=== PATIENT | male | born 1940 | race Caucasian/White ===

== ENCOUNTER 2016-07-29 21:54 | Observation (INO) | payer OTHER ==
--- NOTE | 2016-07-29 22:28 | CPEKG ---
Heart Rate: 91 RR Interval: 659 P-R Interval: 152 QRSD Interval: 96 QT Interval: 364 QTC Interval: 448 P Boston: 21 QRS Boston: -59 T Wave Boston: 40 EKG Severity - ABNORMAL ECG - EKG Impression: SINUS RHYTHM EKG Impression: PAIRED VENTRICULAR PREMATURE COMPLEXES EKG Impression: PROBABLE LEFT ATRIAL ABNORMALITY EKG Impression: LEFT ANTERIOR FASCICULAR BLOCK Electronically Signed By: Mervin Serrano 30-Jul-2016 06:20:26
[2016-07-29 22:35] LABS: % IMMATURE GRANULYOCYTES 0.2 % (0.0-1.1); ABSOLUTE IMMATURE GRANULOCYTES 0.01 10^3/uL (0.00-0.10); ADD DIFF? NO; ADD MORPH? NO; ADD SCAN? NO; ATYPICAL LYMPHOCYTE FLAG 10 (0-99); FRAGMENT RBC FLAG 0 (0-99); HEMATOCRIT 45.1 % (40.0-51.0); HEMOGLOBIN 15.7 g/dL (13.7-17.5); LEFT SHIFT FLG 0 (0-99); LIPEMIA HEMOLYSIS FLAG 90 (0-99); MEAN CELL HEMOGLOBIN 32.3 pg (27.9-34.1); MEAN CELL HEMOGLOBIN CONCENTR. 34.8 g/dL (32.4-36.7); MEAN CELL VOLUME 92.8 fL (81.5-99.8); MEAN PLATELET VOLUME 9.6 fL (8.7-11.7); PLATELET CLUMPS FLAG 0 (0-99); PLATELET COUNT 250 10^3/uL (150-400); RED BLOOD CELL COUNT 4.86 10^6/uL (4.40-6.38)
--- NOTE | 2016-07-29 22:40 | EDPHY ---
H & P Stated Complaint: stroke like symptoms began 1914 tonight Time Seen by Provider: 07/29/16 22:06 HPI/ROS: Chief complaint: Right jaw and arm numbness and weakness HPI: 75-year-old male was driving home from dinner at 7:15 this evening when he had the sensation that his right jaw felt dislocated or out of place. He was able to open and close without any difficulty. Shortly thereafter he became aware that he was having difficulty moving his right arm. States he could not lift it across his body. Patient also had some blurry vision and some numbness in his right leg. This lasted for about an hour when he called his primary care physician, who advised him to observe this for 30 minutes. If things did not improve resolved should present for evaluation. Patient states now he feels normal. Does not have a history of similar episodes in the past. No headache. Vision is now back to normal. No nausea or vomiting. Symptoms were moderate in severity, now completely resolved. ROS: 10 point Review of Systems is negative except as noted in the HPI. Past medical history: PVCs status post angiogram and ablation in March of last year. Renal calculi Ulcer colitis peptic ulcer disease Depression Allergies: Sulfa Physical exam: Gen: Awake, Alert, No Distress HEENT: Nose: no rhinorrhea Eyes: PERRLA, EOMI Mouth: Moist mucosa Neck: Supple, no JVD Chest: nontender, lungs clear to auscultation Heart: S1, S2 normal, no murmur Abd: Soft, non-tender, no guarding Back: no CVA tenderness, no midline tenderness Ext: no edema, non-tender Skin: no rash Neuro: CC the NIH stroke exam - Personal History Current Tetanus/Diphtheria Vaccine: Unsure Current Tetanus Diphtheria and Acellular Pertussis (TDAP): Unsure - Medical/Surgical History Hx Asthma: No Hx Chronic Respiratory Disease: No Hx Diabetes: No Hx Cardiac Disease: No Hx Renal Disease: No Hx Cirrhosis: No Hx Alcoholism: No Hx HIV/AIDS: No Hx Splenectomy or Spleen Trauma: No Other PMH: prolapsed rectum and hemarrhoids and UTI. cardiac ablasion and angiogram 2016 - Social History Smoking Status: Never smoked Constitutional: Initial Vital Signs Temperature (C) 36.8 C 07/29/16 22:08 Heart Rate 94 07/29/16 22:08 Respiratory Rate 16 07/29/16 22:08 Blood Pressure 125/75 H 07/29/16 22:08 O2 Sat (%) 98 07/29/16 22:08 O2 Delivery Mode Room Air Allergies/Adverse Reactions: Sulfa (Sulfonamide Antibiotics) Allergy (Mild, Verified 07/29/16 22:09) Home Medications: Medication Instructions Recorded Rapiflo 03/08/15 ASPIRIN 07/29/16 BIOCEL TABLET 07/29/16 CLONAZEPAM 07/29/16 Cialis 07/29/16 Glucosamine Chondroitin Cap 07/29/16 Latanoprost 0.005% 07/29/16 Levofloxacin 07/29/16 Lutein 07/29/16 Ocuvite Softgel 07/29/16 [place] 3 1,000 mg Softgel 07/29/16 PRILOSEC 07/29/16 Sertraline HCl 07/29/16 Medical Decision Making - Diagnostics EKG Interpretation: EC sinus rhythm with a rate of 91 left anterior fascicular block multifocal PVCs. No acute ST or T-wave changes. Imaging: CT brain: Negative per Dr. Ny ED Course/Re-evaluation: 75-year-old male presenting with TIA type symptoms. Symptoms have resolved here. ECG shows no acute changes. CT brain is normal. Blood work is unremarkable. Patient will require admission for TIA workup. I have discussed with Dr. Philip Joy, hospitalist. He will admit to his service for further evaluation. - Data Points Laboratory Results: Laboratory Results 07/29/16 22:07 07/29/16 22:07 07/29/16 07/29/16 22:07 22:07 WBC 4.79 10^3/uL 10^3/uL (3.80-9.50) RBC 4.86 10^6/uL 10^6/uL (4.40-6.38) Hgb 15.7 g/dL g/dL (13.7-17.5) Hct 45.1 % % (40.0-51.0) MCV 92.8 fL fL (81.5-99.8) MCH 32.3 pg pg (27.9-34.1) MCHC 34.8 g/dL g/dL (32.4-36.7) RDW 13.0 % % (11.5-15.2) Plt Count 250 10^3/uL 10^3/uL (150-400) MPV 9.6 fL fL (8.7-11.7) Neut % (Auto) 61.0 % % (39.3-74.2) Lymph % (Auto) 30.1 % % (15.0-45.0) Antelope % (Auto) 7.9 % % (4.5-13.0) Eos % (Auto) 0.6 % % (0.6-7.6) Baso % (Auto) 0.2 % L % (0.3-1.7) Nucleat RBC Rel Count 0.0 % % (0.0-0.2) Absolute Neuts (auto) 2.92 10^3/uL 10^3/uL (1.70-6.50) Absolute Lymphs (auto) 1.44 10^3/uL 10^3/uL (1.00-3.00) Absolute Monos (auto) 0.38 10^3/uL 10^3/uL (0.30-0.80) Absolute Eos (auto) 0.03 10^3/uL 10^3/uL (0.03-0.40) Absolute Basos (auto) 0.01 10^3/uL L 10^3/uL (0.02-0.10) Absolute Nucleated RBC 0.00 10^3/uL 10^3/uL (0-0.01) Immature Gran % 0.2 % % (0.0-1.1) Immature Gran # 0.01 10^3/uL 10^3/uL (0.00-0.10) Sodium 134 mEq/L mEq/L (134-144) Potassium 3.8 mEq/L mEq/L (3.5-5.2) Chloride 100 mEq/L mEq/L (97-110) Carbon Dioxide 23 mEq/l mEq/l (22-31) Anion Gap 11 mEq/L mEq/L (8-16) BUN 11 mg/dL mg/dL (7-23) Creatinine 0.8 mg/dL mg/dL (0.7-1.3) Estimated GFR > 60 Glucose 156 mg/dL H mg/dL (70-100) Calcium 9.5 mg/dL mg/dL (8.5-10.4) Departure - Departure Disposition: [facility] Acute Clinical Impression: TIA (transient ischemic attack) Condition: Good Referrals: Abdelrahman Rivera MD [Primary Care Provider] - As per Instructions NIH Stroke Scale Date of Exam: 07/29/16 Time of Exam: 22:20 Level of Consciousness: Alert LOC Questions: Answers Both LOC Commands: Performs Both Correctly Best Gaze: Normal Visual: No Visual Loss Facial Palsy: Normal Motor Arm-Left: No Drift Motor Arm-Right: No Drift Motor Leg-Left: No Drift Motor Leg-Right: No Drift Limb Ataxis: Absent Sensory: Normal Best Language: No Aphasia Dysarthria: Normal Extinction and Inattention (Neglect): No Abnormality NIH Scale Score: 0
[2016-07-29 22:50] LABS: ANION GAP 11 mEq/L (8-16); CALCIUM 9.5 mg/dL (8.5-10.4); CARBON DIOXIDE 23 mEq/l (22-31); CHLORIDE 100 mEq/L (97-110); CREATININE 0.8 mg/dL (0.7-1.3); GLOMERULAR FILTRATION RATE > 60; GLUCOSE 156 mg/dL (70-100); POTASSIUM 3.8 mEq/L (3.5-5.2); SODIUM 134 mEq/L (134-144)
[2016-07-29] MEDS ORDERED: ONDANSETRON 4 MG/2 ML VIAL ONE (23:40)
--- NOTE | 2016-07-30 00:41 | GHP ---
[f rep st] HISTORY AND PHYSICAL DATE OF ADMISSION: 07/29/2016 CHIEF COMPLAINT: Right-sided weakness. HISTORY OF PRESENT ILLNESS: This is a 75-year-old male with history of PVCs, status post ablation d one by Dr. Childress in March 2016, who presents to the emergency department today with right-sided w eakness. The patient was driving home from work at 7:15 tonight when he felt like his right "jaw was frozen." He got into his house when he then developed some weakness in his right arm to the point where he was unable to bring his arm up past his chest. He also had some blurred vision and some mild slurre d speech. His symptoms lasted for about 45 minutes to an hour, then spontaneously resolved. The patient states that he has not had any palpitations since his ablation in March. However, si nce his ablation, he has had bouts of severe anxiety. He had been taking rosuvastatin up until 07/14, which he stopped since he thought this may be contributing to his anxiety. He also quit carvedil ol on 07/16/2016. The patient had been on Lipitor in the past, but this was discontinued due to mus shyam weakness. PAST MEDICAL HISTORY: 1. Duodenal ulcer. 2. Kidney stones. 3. Obstructive sleep apnea. 4. Ulcerative colitis. 5. Reactive arthritis. 6. Severe depression. 7. Rectal prolapse and subsequent urinary retention. 8. Hemorrhoids. 9. PVCs, status post ablation. PAST SURGICAL HISTORY: 1. Tonsillectomy and adenoidectomy. 2. Left knee reconstruction. 3. Sleep apnea surgery. 4. Angiogram done in 01/2016, and this showed some plaque but no critical stenosis. HOME MEDICATIONS: Reviewed. Refer to [facility] for details. ALLERGIES: Sulfa, as well as Lipitor. SOCIAL HISTORY: The patient has homes both in [place] and [place]. He receives his medical c are mainly in [place]. He denies any tobacco use. FAMILY HISTORY: Reviewed and noncontributory. REVIEW OF SYSTEMS: Comprehensive 10-point review of systems was done and was negative, except for a s mentioned in the HPI. PHYSICAL EXAMINATION: VITAL SIGNS: Blood pressure 114/83, pulse of 78, respiratory rate 16, O2 sat uration 96% on room air. Temperature afebrile. GENERAL: No acute distress. HEAD: Normocephalic, atraumatic. EYES: PERRLA. Sclerae anicteric. MOUTH: Moist mucous membranes. NECK: Supple. N o lymphadenopathy. CARDIOVASCULAR: S1, S2, regular rate and rhythm. No murmurs, rubs, clicks, gal lops. No JVD. No lower extremity edema. No carotid bruits. PULMONARY: Lungs are clear. No whee zes, rales, or rhonchi. ABDOMEN: Soft, nontender, nondistended. No guarding or rebound tenderness . Normoactive bowel sounds. EXTREMITIES: No clubbing or cyanosis. NEUROLOGIC: Cranial nerves 2- 12 grossly intact. No focal motor or sensory deficits. There is no pronator drift. Face is symmet rom. Muscle strength 5/5 bilateral upper extremity flexion, extension, boxcar weigher strength. Muscle stren gth 5/5 in flexion and extension at the hip. Vision is reported to be normal. SKIN: Clear. No ra shes. DIAGNOSTICS: WBC 4.79, hemoglobin 15.7, hematocrit 45.1, platelets 258. Sodium 134, potassium 3.8, chloride 100, CO2 23, BUN 11, creatinine 0.8, glucose 156. Head CT was reviewed, showing no definite infarct. EKG, which I visualized and personally interpreted, shows sinus rhythm, rate 91 beats per minute, wi th paired PVCs. ASSESSMENT: This is a 75-year-old male with history of premature ventricular contractions, status p ost ablation in March, who has been having bouts of anxiety, presenting with transient right-side d arm weakness and facial asymmetry with blurred vision and mild slurred speech, concerning for day sient ischemic attack versus cerebrovascular accident versus somatization from stress versus other. PLAN: The patient will be placed on observation, where we will proceed with an MRI of the brain to rule out CVA. Will check his lipid panel and restart Crestor that he had been on previously. Will also order an echocardiogram to evaluate for cardiac thrombus. Will defer imaging his carotids, giv en the fact that the patient states he had a negative carotid Doppler done in 03/2016. Neurology wi ll be consulted as well. /[id number]/MODL
[2016-07-30 05:34] LABS: CHOLESTEROL 127 mg/dL (140-220); CHOLESTEROL/HDL RATIO 2.23 RATIO (1.00-4.97); HIGH DENSITY LIPOPROTEIN 57 mg/dL (40-65); LDL/HDL RATIO 0.98 RATIO (1.00-3.64); LOW DENSITY LIPOPROTEIN 56 mg/dL (80-100); NON-HIGH DENSITY LIPOPROTEIN 70 mg/dL (90-129); TRIGLYCERIDE 70 mg/dL (40-150); VERY LOW DENSITY LIPOPROTEINS 14 mg/dL (8-25)
--- NOTE | 2016-07-30 08:46 | GCON ---
[f rep st] CONSULTATION REFERRING PHYSICIAN: Dr. Joy HISTORY: The patient is a 75-year-old gentleman who I am asked to see in neurologic consultation re darying an episode of neurologic dysfunction characterized by a feeling of stiffness in the right ja w and then subsequent trouble moving the right arm and some more subtle right lower extremity sympto ms. He said symptoms began at 7:15 yesterday while he was in the car and noticed that his jaw just seemed stiff over near the temporomandibular joint region. He could open his mouth. He was not try ing to speak but when he got home, he was able to speak and did not feel his language was impaired. He perceived a little bit of blurring in the right eye but never double vision. No headache. Abou t 30 minutes after the onset of symptoms, he noticed it was hard for him to cross his right arm up a nd to the left side of his body. There were some abnormal feelings in the right leg but he was able to walk normally. He decided to go to the emergency room after consulting with his physician and h ad a CT that was negative and was admitted for monitoring of possible TIA. Symptoms completely reso lved within 3 hours but the exact time is not certain. He has never had this occur before. There w ere no recent exposures or illnesses to explain this. He did not have chest pain, palpitations, or shortness of breath when this occurred. He says he has had some weight loss but nothing else more s pecific. He has been through rather extensive cardiac evaluations for frequent PVCs and has had some ablation procedures and coronary angiograms showing no coronary disease. In March, angiogram did not sam w any cerebrovascular disease by report. He recently wore a Holter monitor and does not know the re sults yet. At this point, he says he feels back to normal. PAST MEDICAL HISTORY: Notable for duodenal ulcer, kidney stones, sleep apnea, ulcerative colitis, d epression, rectal prolapse, some urinary retention, hemorrhoids. He has had sleep apnea surgery. ALLERGIES: To sulfa and sensitivity to Lipitor but has typically been able to take Crestor. SOCIAL HISTORY: He lives in [facility]. Most of his care is in [place]. No s moking although he did smoke some cigars in the past. He has about 3 glasses of wine per night, alt ester he has not had anything to drink in the last month perhaps. FAMILY HISTORY: Noncontributory. MEDICATIONS: Prior to admission, he was taking sertraline, Prilosec, Ocuvite, lutein, levofloxacin, clonazepam, Cialis, aspirin. Currently, he is on Crestor 5 mg. REVIEW OF SYSTEMS: As outlined above, otherwise unremarkable. PHYSICAL EXAMINATION: VITAL SIGNS: Blood pressure is 125/87, pulse of 75, respirations 15, tempera ture 36.9. GENERAL: He is well developed, in no acute distress. HEENT: Eyes are clear. NECK: S upple, with no bruits or masses. CARDIAC: Regular rate and rhythm. No murmur. NEUROLOGIC: He is awake, alert, and attentive with clear and fluent speech. He is oriented to person, place, and conchis e. He has good recent and remote memory, with preservation of concentration and attention as well a s good general fund of knowledge. The pupils are 3 mm and reactive. Visual manuel are full. Extra ocular movements are intact. Normal facial sensation and strength. Palate elevates symmetrically a nd tongue protrudes midline. Motor exam reveals normal muscle bulk and tone with 5/5 strength excep t for a little bit of weakness in the right shoulder but that seemed to be from his chronic rotator cuff problems. The rest of his strength is good. Minimal tremulousness on [id number]. Reflexe s are 2+ and symmetric with no pathologic reflexes. Sensation is preserved for temperature througho ut the extremities and face. IMAGING STUDIES: Head CT was reviewed and shows some mild atrophy and chronic microvascular disease but nothing else more specific. LABORATORY STUDIES: Negative for any abnormalities on the CBC and the electrolytes are normal. Cho lesterol 127, LDL cholesterol 56. Sinus rhythm on EKG. ASSESSMENT AND PLAN: The patient has probably experienced a transient ischemic attack based on thes e symptoms. Differential considerations of atypical migraine or seizure are considered much less li grace. An anxiety reaction with conversion symptoms is also thought to be less likely than ischemic cause based on his history of some vascular disease and risk factors. At this point, I agree with not reimaging cerebral artery vessels. I think it is appropriate for th e brain MRI to be obtained to look for any evidence of a small stroke and echocardiogram as well. I f all of this is unremarkable, I would recommend continuing him on aspirin therapy and statin therap y if he can tolerate this. With regard to cardiac monitoring, I would defer back to his cardiologis t in [place] on whether they want to pursue more long-term monitoring but he just had a Holter and the results are not known yet. The likelihood of occult atrial fibrillation is low but cannot definitively be excluded and a prolonged monitoring of at least 30 days or longer with a LINQ type d evice would be a reasonable consideration as well. I had a detailed discussion with the patient reg arding these issues and he is comfortable with this approach. I would anticipate him being discharg ed later today. Copy requested to: Dr. Miguel Winn [place], [place] /[id number]/MODL
[2016-07-30] MEDS ORDERED: ROSUVASTATIN CALCIUM 10 MG TAB PO SCH (09:00)
[2016-07-30 09:31] VITALS: RESP 20; O2SAT 98
--- NOTE | 2016-07-30 10:09 | HOSPPROG ---
Hospitalist Progress Note Assessment/Plan: Patient is a 75-year-old male presented to the emergency room with right-sided weakness. Today is my 1st encounter with the patient. Chart reviewed. Discussed his care with Dr. Cassidy/neurology. * Transient right arm weakness and facial sit symmetry with blurred vision and slurred speech/ most likely a TIA - MRI shows nothing acute, but nonspecific periventricular and subcortical white matter disease in frontal/parietal lobes -tele shows frequent PVC's -reviewed echo report with Dr Brandon/ cardiology/ nothing acute but has significant calcification #. PVC's s/p ablation -reviewed the ekg monitor and he has had multiple episodes of bigeminy/no afib seen -recommending Link monitor #. anxiety -med resumed #. recent prostatitis -levaquin #. Plan: spoke with Dr Rivera, PCP, he will f/u with Pacheco/ dc home Subjective: Pacheco has no specific complaints. Feeling well. Objective: Vital Signs Temp Pulse Resp BP Pulse Ox 36.6 C 88 20 150/85 H 98 07/30/16 08:00 07/30/16 08:00 07/30/16 08:00 07/30/16 08:00 07/30/16 08:00 07/29/16 07/30/16 07/31/16 05:59 05:59 05:59 Intake Total 250 Balance 250 - Physical Exam Constitutional: no apparent distress, appears nourished, not in pain Eyes: PERRL Ears, Nose, Mouth, Throat: hearing normal Cardiovascular: regular rate and rhythym, other (extra beats noted when I listened to his heart) Respiratory: no rales or rhonchi Gastrointestinal: normoactive bowel sounds Skin: warm, mottled Musculoskeletal: full muscle strength Neurologic: AAOx3, sensation intact bilaterally, CN II-XII Intact, No weakness, No pronator drift, No facial droop Psychiatric: interacting appropriately, not anxious ICD10 Worksheet Patient Problems: Problems Problem Status Onset TIA (transient ischemic attack) Acute
[2016-07-30] MEDS ORDERED: NON-FORMULARY NEW DRUG (Omeprazole Magnesium [Prilosec Otc] 20 MG) PO SCH (10:15)
[2016-07-30] MEDS ORDERED: SERTRALINE HCL 25 MG TAB PO SCH (10:30)
[2016-07-30] MEDS ORDERED: PANTOPRAZOLE SODIUM 40 MG TAB PO SCH (10:30)
[2016-07-30] MEDS ORDERED: SERTRALINE HCL 50 MG TAB PO SCH (10:30)
[2016-07-30] MEDS ORDERED: ASPIRIN EC 81 MG TAB PO SCH (10:30)
[2016-07-30 12:04] VITALS: BP 137/89; PULSE 20; TEMP 97.8
--- NOTE | 2016-07-30 13:03 | ECHO ---
[id number] + + [address] : : [place] [address] : : [phone] + + Adult Echocardiographic Report + ---------+ :Name: MARIN CRISTOBAL HStudy Date: 07/30/2016 09:54 AM : : Hospital Admission Number: [id number] Bernice gee: 344: :: 1940 Gender: Male Height: 66 i n : :Age: 75 yrs Race: WH Weight: 145 lb : :Reason For Study: Eval for Cardiac Source of Emboli : : BSA: 1.7 met ers2 : :History: TIA, Right sided weakness : + ---------+ MMode/2D Measurements \T\ Calculations IVSd: 0.90 cm LVIDd: 5.3 cm FS: 39.8 % LVOT diam: 2.1 cm LVPWd: 1.1 cm LVIDs: 3.2 cm EDV(Teich): 136.7 ml LVOT area: 3.5 cm2 ESV(Teich): 41.1 ml EF(Teich): 69.9 % Normal Measurement Values: + + :LVIDd (3.5-5.7cm) IVSd (0.6-1.1cm) LVPWd (0.6-1.1cm) Aortic Root (2.0-3.7cm)Left Atrium (1.5-4.0cm): :LV Vol(d) (76-115ml) LV Vol(s) (29-48ml) Ejec Fraction (50-65%)PV Christiano (0.6- 1.2m/s) TV Christiano (0.4-1.0m/s) : :MV E Christiano (0.8-1.0m/s)MV A Christiano (0.3-1.0m/s)LVOT Christiano (0.7-1.2m/s) Asc Ao Christiano ( 0.9-1.8m/s) : + + Doppler Measurements \T\ Calculations MV E max christiano: Ao V2 max: LV V1 max: SV(LVOT): 71.6 cm/sec 194.1 cm/sec 92.8 cm/sec 83.8 ml MV A max christiano: Ao max P.1 mmHgLV V1 max P.4 cm/sec Ao mean P.4 mmHg MV E/A: 0.58 16.5 mmHg LV V1 mean PG: Ao V2 mean: 1.9 mmHg 189.5 cm/sec LV V1 mean: Ao V2 VTI: 58.7 cm 63.1 cm/sec MONCHO(I,D): 1.4 cm2 LV V1 VTI: 24.2 cm MONCHO(V,D): 1.7 cm2 TR max christiano: 250.6 cm/sec TR max P.1 mmHg RAP systole: 5.0 mmHg RVSP(TR): 30.1 mmHg Left Ventricle The left ventricle is normal in size. There is normal left ventricular wall thickness. The left ventricular ejection fraction is normal. There is Doppler evidence for diastolic dysfunction. Multiple episodes of ectopy noted during exam. History of Ablation in the past. The left ventricular wall motion is normal. Right Ventricle The right ventricle is normal in size and function. Atria The left atrial size is normal. Right atrial size is normal. Mitral Valve The mitral valve is normal. There is no mitral valve stenosis. There is trace to mild mitral regurgitation. Tricuspid Valve Normal tricuspid valve. There is mild tricuspid regurgitation. Right ventricular systolic pressure is normal. Aortic Valve The aortic valve is trileaflet. There is a focal calcification on the Non Coronary Cusp of the aortic valve and the anterior mitral valve leaflet measuring 2.1cm x 1.5cm. The Ao Vmax is 2.6m/s with a Ao mean PG of 14 mmHg. Turbulent flow is noted through aortic valve. Pulmonic Valve The pulmonic valve is normal in structure and function. There is no pulmonic valvular regurgitation. Great Vessels The aortic root is normal size. Pericardium/Pleural There is no pericardial effusion. Conclusion A complete two-dimensional transthoracic echocardiogram was performed (2D, M-mode, Doppler and color flow Doppler). The left ventricular ejection fraction is normal. There is Doppler evidence for diastolic dysfunction. Multiple episodes of ectopy noted during exam. History of Ablation in the past. The left ventricular wall motion is normal. The left atrial size is normal. The mitral valve is normal. There is trace to mild mitral regurgitation. Normal tricuspid valve There is mild tricuspid regurgitation. Right ventricular systolic pressure is normal. The aortic valve is trileaflet. There is a focal calcification on the Non Coronary Cusp of the aortic valve and the anterior mitral valve leaflet measuring 2.1cm x 1.5cm. The Ao Vmax is 2.6m/s with a Ao mean PG of 14 mmHg. Turbulent flow is noted through aortic valve. There is no pericardial effusion. Final Reading Physician: William Garza signed on 07/30/2016 01:02 PM Ordering Physician: Philip Joy Performed By: Daniel Bentley, ZENYCS
--- NOTE | 2016-07-30 13:56 | GDS ---
[f rep st] DISCHARGE SUMMARY DISCHARGE DIAGNOSES: 1. Likely a transient ischemic attack with transient right arm weakness and blurred vision, with slurred speech. 2. Premature ventricular contractions. 3. Anxiety. 4. Recent prostatitis. CONSULTATIONS: Dr. Esteban Cassidy. HISTORY: Briefly, the patient is a 75-year-old male, with a history of PVCs, status post ablation by Dr. Childress in March 2016. He presented to the emergency room with right-sided weakness. He was driving home from work when he felt that his right jaw was frozen, and then he got in his house and developed some right arm weakness, where he was unable to swing his arm up past his chest. He came to [facility] for further evaluation. He was seen and evaluated by Dr. Cassidy with [facility]. He believes that the patient most likely experienced a transient ischemic attack based on the symptoms. His differential included atypical migraine or seizure, but they are much less likely. He also has some anxiety that is underlying. He did not get any repeat imaging of his cerebral artery vessels. He has had extensive workup in [place]. His MRI of the brain showed no evidence of a stroke. His echocardiogram was noted to be stable. On the painter plate, he has been in sinus rhythm, but having multiple PVCs. I have updated his primary care provider, Dr. Rivera, who will follow up with him. HOSPITAL COURSE: 1. Most likely transient ischemic attack. His MRI showed nothing acute, but nonspecific periventricular and subcortical white matter disease in the frontal parietal lobes. The echocardiogram noted that his left ventricular wall motion is normal. He had multiple episodes of ectopy during the exam. It notes that there is focal calcification on the non coronary cusp of the aortic valve and the anterior mitral valve leaflet measuring 2.1 cm x 1.5 cm. He has trivial flow that is noted to the aortic valve. Recommending that he get an outpatient Holter monitor to be assured that he is not having any atrial fibrillation. He will continue statin and aspirin therapy. 2. PVC status post ablation. In reviewing painter plate, he has had multiple episodes of bigeminy. No atrial fibrillation is noted. 3. Anxiety. Home medications have been resumed. 4. Recent prostatitis. Treated with Levaquin. PENDING LABS AND TESTS: None. CONDITION AT DISCHARGE: Stable. Blood pressure is 137/89, heart rate is 88, respiratory rate is 20, O2 sats on room air 98%, temperature is 36.6 Celsius. MEDICATIONS AT DISCHARGE: Please see the EMR. DISCHARGE INSTRUCTIONS: 1. Recommending that he follow up with Cardiology and get a Holter monitor. 2. Resume his Crestor and continue aspirin. 3. To follow up with Dr. Rivera. 4. If he has any stroke symptoms he is to return to the ER. /[id number]/MODL MTDD
[2016-07-30] MEDS ORDERED: OMEGA-3 FATTY ACIDS 1,000 MG CAP PO SCH (21:00)
[2016-07-30] MEDS ORDERED: CHOLECALCIFEROL VIT D3 1,000 UNITS TAB PO SCH (21:00)
[2016-07-30] MEDS ORDERED: LATANOPROST 0.005% 2.5 ML OPHT DROPS EACHEYE SCH (21:00)
[2016-07-30] MEDS ORDERED: LATANOPROST 0.005% EACHEYE SCH (21:00)
[2016-07-31] MEDS ORDERED: NON-FORMULARY NEW DRUG (Silodosin [Rapaflo] 8 MG) PO SCH (09:00)
[2016-07-31] MEDS ORDERED: Herbals/Supplements -Info Only PO SCH (09:00)
== END 2016-07-30 13:29 | disposition home or self-care (01) ==
LOC: UNDOADMOB 23:21 → F3N 07-30 00:41
PROVIDERS: ADMIT Family Medicine; ATTEND Nurse Practitioner Family
DX: G45.9 Transient cerebral ischemic attack, unspecified (principal); I49.3 Ventricular premature depolarization; F41.9 Anxiety disorder, unspecified; N41.9 Inflammatory disease of prostate, unspecified; Z87.11 Personal history of peptic ulcer disease; Z88.2 Allergy status to sulfonamides; Z87.442 Personal history of urinary calculi
CPT/HCPCS: 70450; 70551; 93005; 93306; G0378; J2405